=== PATIENT | female | born 1965 | race African-American/Black ===

== ENCOUNTER 2018-07-08 06:41 | Day surgery (SDC) | payer MEDICARE, MEDICAID ==
[~2018-07-08] VITALS: Ht 157.5 cm; Wt 81.6 kg
[2018-07-08] MEDS ORDERED: CYCLOPENTOLATE HCL 1% OPHTH DROPS 2ML LEFTEYE NR (06:55)
[2018-07-08] MEDS ORDERED: PHENYLEPHRINE HCL 10% OPHTH DROPS 5ML LEFTEYE NR (06:55)
[2018-07-08] MEDS ORDERED: HYALURONATE SODIUM 14 MG/ML 0.85ML SYRINGE IO ONE (07:09)
[2018-07-08] MEDS: TROPICAMIDE 1% OPHTH DROPS 15ML LEFTEYE NR ×2 (07:25→12:18)
[2018-07-08] MEDS ORDERED: LISI-604 PO (08:42)
[2018-07-08] MEDS ORDERED: INSU100I28 SQ (08:42)
[2018-07-08] MEDS ORDERED: GLIP10TA10 PO (08:42)
[2018-07-08] MEDS ORDERED: MIDAZOLAM HCL 2 MG/2 ML VIAL ONE (09:15)
[2018-07-08] MEDS ORDERED: HYDROMORPHONE HCL/PF 2MG/ML CPJ IV PRN (09:30)
[2018-07-08] MEDS ORDERED: SODIUM CHLORIDE 0.9% 1,000 ML IV ONE (09:30)
[2018-07-08] MEDS ORDERED: ONDANSETRON HCL 4MG/2ML INJ IV PRN (09:30)
[2018-07-08] MEDS ORDERED: BALANCED SALT IRRIG SOLN 15ML ONE (13:11)
[2018-07-08] MEDS ORDERED: ACETYLCHOLINE CHLORIDE INTRAOCULAR SOLUTION 1:100 ELECTROLYTE DILUENT IO ONE (13:11)
[2018-07-08] MEDS ORDERED: LIDOCAINE HCL/PF 2% 20 MG/ML 10ML VIAL ONE (13:11)
[2018-07-08] MEDS ORDERED: NEO/POLYMYX B SULF/DEXAMETH OPHTH OINT 3.5GM ONE (13:11)
[2018-07-08] MEDS ORDERED: CIPROFLOXACIN 0.3% OPHTH SOLN 2.5ML ONE (13:11)
[2018-07-08] MEDS ORDERED: PREDNISOLONE ACETATE 1% OPHTH DROPS 1ML ONE (13:11)
[2018-07-08] MEDS ORDERED: TETRACAINE 0.5% OPHTH DROPS 4ML ONE (13:11)
== END 2018-07-08 11:20 | disposition home or self-care (01) ==
LOC: OR 06:41
PROVIDERS: ATTEND Ophthalmology
DX: E11.36 Type 2 diabetes mellitus with diabetic cataract (principal); H25.89 Other age-related cataract; I10 Essential (primary) hypertension; E78.5 Hyperlipidemia, unspecified; Z87.891 Personal history of nicotine dependence; E66.9 Obesity, unspecified; Z68.39 Body mass index [BMI] 39.0-39.9, adult
CPT/HCPCS: 66982; 82962; J2250; J3490; V2632